=== PATIENT | female | born 1985 | race Asian ===

== ENCOUNTER → 2018-02-23 12:05 | Outpatient (CLI) | payer OTHER, SELFPAY ==
--- NOTE | 2018-02-23 | DI.RAD.S_ITS ---
PROCEDURE: XR HIP W PEL IF DONE RT 2V INDICATIONS: Right hip pain TECHNIQUE: 2 views of the hip were acquired. COMPARISON: None. FINDINGS: Bones: No fractures or dislocations. No suspicious bony lesions. The visualized pelvic ring appears intact. Hip joint space appears grossly preserved. Soft tissues: No suspicious soft tissue calcifications or masses. IMPRESSION: Negative examination as above. Dictated by: Leroy Lopez M.D. on 02/23/2018 at 13:34 Approved by: Leroy Lopez M.D. on 02/23/2018 at 13:35
== END ==
PROVIDERS: PCP Nurse Practitioner Family; Visit Provider Nurse Practitioner Family
DX: M25.551 Pain in right hip (principal)
CPT/HCPCS: 73502

== ENCOUNTER → 2018-07-23 12:06 | Outpatient (CLI) | payer OTHER, SELFPAY ==
--- NOTE | 2018-07-23 | DI.CT.S_ITS ---
PROCEDURE: CT ABDOMEN W CON INDICATIONS: ABDOMINAL PAIN TECHNIQUE: After the administration of oral and intravenous contrast, 5 mm thick sections acquired from the diaphragms to the iliac crests. 5 mm thick coronal and sagittal reformats were acquired. For radiation dose reduction, the following was used: automated exposure control, adjustment of mA and/or kV according to patient size. COMPARISON: None. FINDINGS: Image quality: Excellent. Lung bases: Lung bases are clear. Heart size is normal. Solid organs: Liver is normal in size and enhancement. Gallbladder appears normal. Biliary system is non dilated. Pancreas enhances normally. Spleen is normal in size and enhancement. No adrenal nodules. Kidneys are normal in size, without hydronephrosis. Peritoneum and bowel: Contrast enhanced bowel loops appear normal in caliber. No free fluid or air. Nodes and vessels: No retroperitoneal or mesenteric adenopathy by size criteria. Aorta and inferior vena cava are normal in size. Bones: No suspicious bony lesions. No vertebral body compression fractures. Miscellaneous: No ventral hernias. IMPRESSION: No sign of intestinal obstruction or perforation. No solid or hollow organ lesion is found. Source of current pain syndrome is not identified. Dictated by: Emeka Friedman M.D. on 07/23/2018 at 15:13 Approved by: Emeka Friedman M.D. on 07/23/2018 at 15:14
== END ==
PROVIDERS: PCP Nurse Practitioner Family; Visit Provider Nurse Practitioner Family
DX: R10.9 Unspecified abdominal pain (principal)
CPT/HCPCS: 74160; Q9967

== ENCOUNTER 2022-03-11 16:23 | Outpatient (CLI) | payer OTHER, SELFPAY ==
--- NOTE | 2022-03-11 | DI.US.S_ITS ---
PROCEDURE: US OB BIOPHYSICAL PROFILE INDICATIONS: DECREASED MOVEMENT IVF RAD 04/05/22 TECHNIQUE: Real-time scanning was performed of the fetus for biophysical profile, with image documentation. COMPARISON: None. FINDINGS: General: A single living intrauterine gestation is present. Presentation: Vertex Placenta: Placental position is anterior. Cervical os is not well evaluated. Amniotic fluid index: 20.3 heart rate: 130 beats per minute Maternal cervical canal: Not evaluated Clinically estimated gestational age based on prior dating is 36 weeks and 3 days. Biophysical profile: Tone: 2 points. Movement: 2 points. Respiration: 2 points. Largest pocket of fluid: 2 points. IMPRESSION: Normal biophysical profile: 11/12. We strive to produce accurate, complete, and clear reports of imaging services. To assist us in improving patient care, this report was composed using standard report templates and voice recognition software. Therefore, it may contain abnormal punctuation, insertions and/or omissions. Occasional wrong-word or sound-alike substitutions may occur. Though we review the report and make efforts to correct it, we do recommend that the report be read carefully in proper context to recognize any text inaccuracies. Dictated by: Jakub Pimentel M.D. on 03/11/2022 at 19:05 Approved by: Jakub Pimentel M.D. on 03/11/2022 at 19:07
--- NOTE | 2022-03-11 16:51 | PM.OBTRLD ---
Visit Information Visit Information Date of evaluation: 03/11/22 Primary OB Provider: Rula Butts On-call OB Provider: Rula Butts Reason for Evaluation: Yes non-stress test Comments/Additional reasons for admission: [id number] @ 36 3/7wks here for routine post dates testing for IVF. Vital Signs Vital Signs: VS: BP 121/72mmHg, HR 67bpm, T 36.2C Temporal Review of Systems Review of Systems ROS: Yes All systems reviewed with the patient and are negative except as otherwise documented Exam Presentation: vertex Objective Imaging OB US >14wks LImited (BPP): My impression: BPP 8/8 GABRIELLE 20.3cm Evaluation Evaluation Baseline heart rate: 130 Variability: Moderate (11-25) monitor accelerations: Present Monitor Decelerations: Absent Contraction Frequency (minutes): 0 Category of Tracing: Reactive Comments: CE deferred Diagnosis, Plan/Disposition Final Diagnosis (1) resulting from in vitro fertilization in third trimester: Status: Acute Plan/Disposition Plan: Reassuring testing F/U in 1 week OB Disposition: home
== END 2022-03-11 18:20 | disposition home or self-care (01) ==
LOC: LABOR 16:39 → OB 03-12 10:37
PROVIDERS: PCP Family Medicine; Referring Provider Nurse Practitioner Obstetrics & Gynecology; Visit Provider Nurse Practitioner Obstetrics & Gynecology
DX: O09.813 Supervision of pregnancy resulting from assisted reproductive technology, third trimester (principal); Z3A.36 36 weeks gestation of pregnancy
CPT/HCPCS: 59025; 76819; G0378; G0379

== ENCOUNTER 2022-03-25 10:30 | Inpatient (IN) | payer OTHER, SELFPAY ==
--- NOTE | 2022-03-25 10:39 | PM.OBHP.1 ---
OB HPI Date/Time Date of admission: 03/25/22 Date Patient Seen: 03/25/22 Time Patient Seen: 10:39 History of Present Condition Chief complaint: NST : 1 Para: 0 Estimated Date of Delivery: 04/05/22 Estimated Gestational Age (weeks): 38.5 Narrative: Arline Cruz is a 36 year old female @ 38wks 5/7 weeks by IVF dating. Noticed a gush f clear fluid at 0730 that has continued to leak. Feeling some regular mild cramping. No vaginal bleeding. Uncomplicated care w/ CNM. Desires low intervention . is present and supportive. Comments: VS: BP 115/66mmHg, HR 76bpm, T 36.3C Temporal History of Present care: good care, initiated at week # (4), number of visits (11) and pounds weight gain (39) Dating criteria: other (IVF) Ultrasounds: normal 1st trimester US, normal mid trimester US and other (normal echo) Obstetrical complications: none Medical complications: none Preadmission Labs Blood type: A (+) positive -: Antibody screen: negative, GBS status: positive, HBsAG: negative, HIV: negative and RPR/VDLR: negative -: Chlamydia screen: not detected and Gonorrhea screen: not detected -: Rubella: immune and Varicella: immune HCT: 35.7 HCAB: negative PAP: Normal 1 hr GTT: 109 Evaluation Evaluation Baseline heart rate: 135 Variability: Moderate (11-25) monitor accelerations: Present Monitor Decelerations: Absent Contraction Frequency (minutes): 6 Uterine Contraction Intensity: Mild Status: Category l Non-invasive Membranes Rupture Test: positive Comments: thin meconium stained amnioitc fluid CE deferred [facility] Medical History (Updated 03/25/22 @ 17:40 by Rula Butts CNM) Anemia Hyperthyroidism Infertility Family History (Updated 03/25/22 @ 17:41 by Rula Butts CNM) Father Hypertension Mother Depression Social History (Updated 03/25/22 @ 17:41 by Rula Butts CNM) marital status: household members: spouse lives independently: Yes housing: house education level: college occupational status: employed Smoking Status: Never smoker Meds Home Medications and Allergies Allergies Allergy/AdvReac Type Severity Reaction Status Date / Time No Known Drug Allergies Allergy Verified 03/25/22 10:39 Review of Systems Review of Systems ROS: Yes All systems reviewed with the patient and are negative except as otherwise documented OB Exam Resp Effort & Inspection: normal respiratory effort Auscultation: clear to auscultation bilaterally Cardio Rate: regular rate Rhythm: regular rhythm Heart Sounds: S1 normal and S2 normal Presentation: vertex Objective Labs Result Diagrams: 03/25/22 12:00 Assessment and Plan Assessment and Plan Assessment and Plan narrative: A: Term [place] PROM x 3 hours without sx of infection Meconium stained amniotic fluid GBS prophylaxis indicated Cat I FHR P: Admit, routine orders with ampicillin for GBS prophylaxis. Counseled patient on active vs expectant management of PROM with risks and benefits of infection discussed and she is undecided at this time, will let me know if/when she wants pitocin. NST Q hour until active labor. Encouraged balanced rest and activity. Expectant management at this time. Reassess in 6 hours or sooner.
[2022-03-25 12:23] LABS: Add Manual Diff / Slide Review NO; Basophils Absolute Auto 0 /uL (0-100); Basophils Percent Auto 0.5 % (0-2); Eosinophils Absolute Auto 0 /uL (0-450); Eosinophils Percent Auto 0.4 % (2-4); Hematocrit 33.6 % (36-46); Hemoglobin 11.1 g/dL (12.0-16.0); Lymphocytes Absolute Auto 1100 /uL (1100-4500); Lymphocytes Percent Auto 11.4 % (25-40); Mean Corpuscular HGB Conc 32.9 % (30-36); Mean Corpuscular Hemoglobin 29.2 PG (26-34); Mean Corpuscular Volume 88.8 fL (80-100); Monocytes Absolute Auto 700 /uL (0-900); Monocytes Percent Auto 6.7 % (3-14); Neutrophils Absolute Auto 8100 /uL (1500-7000); Platelet Count 160 X10^3/uL (150-400); Red Blood Cell Count 3.78 X10^6/uL (4.0-5.2); Red Cell Distribution Width 13.6 % (11.6-14.8)
[2022-03-25] MEDS: AMPICILLIN 2,000 MG in SODIUM CHLORIDE 0.9% 100 ML 200 MG IV (12:33)
[2022-03-25 12:37] LABS: COVID19 -Nasal RAPID Negative (Negative)
[2022-03-25 15:16] VITALS: BP 115/66
[2022-03-25] MEDS: AMPICILLIN 1,000 MG in SODIUM CHLORIDE 0.9% 100 ML 200 MG IV ×2 (16:00→20:05)
--- NOTE | 2022-03-25 17:42 | PM.OBPNLAB ---
Date/Time Date Patient Seen: 03/25/22 Time Patient Seen: 17:42 Pain Control Pain control: tolerating well Comments: Has been moving, resting and eating. Now feeling stronger contractions, but still irregular and inconsistent strength-oliver. 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 Continues to leak meconium stained fluid, no with occasional black specs. Pelvic Exam Comments: CE deferred Contractions Monitor mode: External Pitocin rate (mU/min): 0 Contraction frequency (min): 5 Contraction duration (min): 2 Contraction pattern: Irregular Contraction intensity: Mild (occasionally moderate) Status status: Category l Heart Rate Baseline: 135 Monitor Accelerations: Present Monitor Decelerations: Absent Assessment and Plan Assessment: other (PROM- expectant management) Plan: continuous present management Comments: After discussion of labor and expectations around pitocin, patient desires labor augmentation if not breathing through contractions at 7:30pm (12 hours of ROM). Encouraged movement balanced with relaxation. Continue GBS prophylaxis. CE after 2 hours of strong contractions. Reassess in 4-6 hours or sooner, PRN.
[2022-03-25] MEDS: OXYTOCIN PREMIX 30 UNIT/500 ML PLAST..BAG 300 UNIT IV (23:15)
--- NOTE | 2022-03-25 23:43 | PM.OBPRVD ---
Events: Premature Rupture Membrane and Meconium Stained Fluid Labor & Delivery Delivery date: 03/25/22 Intrapartal Events: None Cervical ripening method: none Induction method: none Delivery monitor: external FHT and external uterine Route of delivery: Episiotomy description: None L&D Laceration Description: Perineal - 2nd Degree Delivery repair: chromic (3.0) Quantitative Blood Loss: 200 Anesthesia Type: Local (for repair) Narrative: Strong contractions began at 1845 without augmentation. Labor progressed rapidly to spontaneous urge to push with presumption of complete at 2155. Patient pushed well with encouragement and minimal coaching. RT was called to standby at [facility] for meconium stained amniotic fluid. NSVB of a vigorous baby boy in INGRID position at 2309. There was no nuchal cord and the shoulders delivered without additional maneuvers. Rogers was placed on maternal abdomen for drying and skin to skin. After cessation of pulsation, the cord was double clamped by CNM and cut by FOB. 30 units of pitocin in 500mL LR was started at 300mL/hr for AMTSL. Gentle cord traction and a single maternal push with fundal massage led to spontaneous, Mina delivery of an apparently intact placenta, membranes and 3VC. Fundus immediately firm and bleeding minimal. Inspection revealed a short second degree perineal laceration. Repair was completed under 1% lidocaine local with 3.0 chromic in the usual fashion. QBL 200mL. Both mother and baby stable and skin t skin as I left the room. Rogers Baby 1: Infant gender: Male Presentation: vertex Position: Right Occiput Anterior Placenta delivery description: Spontaneous Cord Vessel Description: 3 Vessels score (1 min): 9 score (5 min): 9 weight: 3.41 kg Plan for aftercare: Routine care
[2022-03-25] MEDS: LIDOCAINE 1% 20 ML (23:59)
[2022-03-26] MEDS: ACETAMINOPHEN 325 MG TABLET 650 MG PO ×3 (00:45→12:09)
[2022-03-26] MEDS: KETOROLAC 30 MG/ML VIAL IV (00:45)
[2022-03-26] MEDS: DERMOPLAST SPRAY 20% 60 ML 1 SPRAY TOP (00:46)
[2022-03-26] MEDS: IBUPROFEN 600 MG TABLET PO ×2 (06:33→12:09)
[2022-03-26] MEDS: PRENATAL VIT,CALC/IRON/FOLIC 1 TABLET 1 TAB PO (09:31)
[2022-03-26] MEDS: DOCUSATE 100 MG CAPSULE PO (09:31)
--- NOTE | 2022-03-26 17:14 | P.DS_ITS ---
Discharge Providers Provider Date of admission: 03/25/22 10:30 Discharge Date: 03/26/22 Primary care physician: Fela Van MD Consults: 03/26/22 23:42 Consult to Power Sweeper Operator Routine Comment: Discharge provider: Rula Butts CNM Summary Hospital Course Date Patient Seen: 03/26/22 Time Patient Seen: 17:14 Diagnoses: O70.1 Hospital Course: PPD1: Stable s/p NSVB with short 2nd degree perineal laceration. Voiding, ambulating and independently. Tolerating a general diet. Pain well controlled with PO medication. Vaginal bleeding is light without clots. Feels ready for discharge to home this evening. Peripartum Data Infant Delivery Method: Natural Vaginal Laceration Description: Perineal - 2nd Degree Episiotomy description: None complications: none Mayer 1: Gender: Male Disposition of : home Discharge Diagnosis (1) Second degree perineal laceration during delivery: Status: Acute Status at Discharge Cognitive/behavioral status at discharge: oriented Functional status at discharge: independent ambulation Overall status at discharge: patient is progressing back to baseline Time Spent with Patient Time attestation: Total time spent providing and/or coordinating discharge services: Objective Labs Result Diagrams: 03/25/22 12:00 Exam Vital Signs (past 8 hours): BP 104/67mmHg, HR 61bpm, RR 18/min, T 98.3F Temporal Other: Fundus firm @ U-1, lochia scant to moderate, minimal perineal edema Discharge Plan Discharge Plan Patient Disposition: Home Discharge orders & Medications Prescriptions: New ibuprofen 600 mg Tablet 600 mg PO Q6HR PRN (Reason: Pain, Mild (1-3)) 14 Days Qty: 60 0RF Continued prenat.vits,rogerio,kbe-tunj-ijrcl tablet 1 tab PO DAILY Follow up/Referrals: Fela Van MD [Primary Care Provider] - Rula Butts CNM [Advanced Site Technician] - (Follow-up phone call 04/08/22 @ 4:30pm Follow-up in office 05/06/22 @ 9:45am) Diet/Activity/Treatments Diet: Diet as Tolerated and Regular Activity: pelvic rest x 6 weeks Skin/Wound/Dressing Care Report to your healthcare provider any signs of infection, such as:: chills, fever, increased pain, unusual drainage and unusual redness Visit Report/Discharge Packet Instructions: DI for Depression Discharge Data Primary Care Provider: Fela Van
[2022-03-26 17:43] VITALS: BP 106/70; PULSE 70; RESP 19; TEMP 36.9
== END 2022-03-26 18:30 | disposition home or self-care (01) | DRG 807 ==
PROVIDERS: Admitting Provider Nurse Practitioner Obstetrics & Gynecology; PCP Family Medicine; Referring Provider Nurse Practitioner Obstetrics & Gynecology; Visit Provider Nurse Practitioner Obstetrics & Gynecology
DX: O42.02 Full-term premature rupture of membranes, onset of labor within 24 hours of rupture (principal); Z37.0 Single live birth; O70.1 Second degree perineal laceration during delivery; Z3A.38 38 weeks gestation of pregnancy; Z20.822 Contact with and (suspected) exposure to COVID-19; O99.824 Streptococcus B carrier state complicating childbirth
CPT/HCPCS: 36415; 59050; 85025; 86850; 86900; 86901; 87635; C9803; G0379; J0290; J1885; J2590

== ENCOUNTER 2023-10-27 10:57 | Day surgery (SDC) | payer OTHER, SELFPAY ==
[2023-10-27] VITALS (8 sets, daily range): BP systolic 106–122; BP diastolic 58–71; PULSE 57–86; RESP 13–19; TEMP 36.2–36.9; O2SAT 98–100; BMI 19.0
--- NOTE | 2023-10-27 | PATH_ITS ---
[facility] Accession Number: [id number] No. of containers..03 Tissue . 01 Material submitted: . PART A: endometrium - ENDOMETRIAL CURETTINGS PART B: ectocervix - ECTOCERVICAL, SUTURE AT 12 O'CLOCK PART C: endocervix - ENDOCERVICAL TOP HAT . 01 Diagnosis: A. ENDOMETRIUM, CURETTINGS: Secretory endometrium. Benign endocervical mucosa. No endometrioid intraepithelial neoplasia, endocervical glandular dysplasia or malignancy. . B. ECTOCERVIX, LEEP: High-grade squamous intraepithelial lesion (DELILAH-2/moderate dysplasia). High-grade squamous intraepithelial lesion focally involves the endocervical resection margin. Ectocervical resection is negative for high-grade squamous intraepithelial lesion. No evidence of malignancy. . C. ENDOCERVIX, TOP HAT: Benign endocervical mucosa. No dysplasia or malignancy. [facility] 10/29/2023 1358 Local . 01 Electronically signed: . Bella Cummings MD, Pathologist NPI- [id number] . 01 Gross description: . A. Received in formalin, labeled with two patient identifiers and designated endometrial curettings, and consists of a 1.0 x 1.0 x 0.3 cm aggregate of blood-tinged mucosa and zamora soft tissue, which is filtered and entirely submitted in cassette A1. B. Received in formalin, labeled with two patient identifiers and designated ectocervix 12 o'clock suture, and consists of an intact oriented cervical LEEP measuring 2.2 x 1.8 x 0.7 cm. The suture is placed at 12 o'clock, the ectocervix is diffusely hemorrhagic and focally eroded, and there is a 0.6 cm patent cervical os. The endocervical margin is inked blue. The ectocervix cautery margin is inked black. The specimen is radially submitted and entirely submitted in cassettes: B1: 12-3 o'clock. B2: 3-6 o'clock. B3: 6 to 9 o'clock. B4: 9 to 12 o'clock. C. Received in formalin, labeled with two patient identifiers and designated endocervical top hat, and consists of a 1.5 x 1.0 x 0.3 cm intact cervical tissue with a central 0.3 cm slit-like os. The endocervical margin is inked blue. The remaining cautery margins are inked black. The specimen is radially sectioned and entirely submitted into cassettes C1-C3. ([id number]) /MRV 10/28/2023 [facility]6 Local . 01 Pathologist provided ICD-10: N87.1 . 01 CPT . 459198, 555311, 267937 Specimen Comment: A courtesy copy of this report has been sent to [facility] Pathology Performed at: [address] [address], [place], [place] [id number] MD Liam Martin MD Phone: [phone]
--- NOTE | 2023-10-27 08:24 | SUR.OPER ---
Lithotomy on padded OR bed, head on pillow, arms secured on padded arm boards at <90 degrees abduction. Legs secured in padded yellow fins stirrups.
--- NOTE | 2023-10-27 11:36 | PM.PREOP ---
Pre-operative Note Interval Note History & Physical reviewed/Exam performed by Physician: Yes Changes to H&P: No H&P completed within 30 days and has changed as indicated here:: 10/03/23 ASA Class (for procedural sedation): I
[2023-10-27] MEDS: ACETAMINOPHEN 325 MG TABLET 975 MG PO (11:38)
[2023-10-27] MEDS: LACTATED RINGERS 1,000 ML 42 ML IV (11:38)
[2023-10-27] MEDS: BUPIVACAINE 0.25% W/ EPI (PF) 10 ML VIAL 20 ML INJ (12:26)
--- NOTE | 2023-10-27 12:40 | PM.OP.1 ---
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 Pt had her legs placed in Jong stirrups and an exam under anesthesia was performed. The patient was prepped and draped in a sterile fashion.? A time out was performed. ?The bladder was emptied via straight catheter in sterile fashion.? A sterile speculum was inserted into the vagina.? The cervix was visualized and grasped anteriorly using a single tooth tenaculum.? The uterus sounded to 8 cm and the cervical os was serially dilated using Ramirez dilators up to 17f to allow for passage of the hysteroscope.? The myosure 0 degree hysteroscope was then inserted into the uterus with findings as noted.? The hysteroscope was removed and the uterus was gently curetted and endometrial sampling was passed off the field for permanent study.? The tenaculum was removed. Attention was then turned to LEEP portion of procedure. An insulated speculum was placed into the vagina and the cervix was once again visualized. The ectocervical stroma was superficially infiltrated with 10cc of 0.25% marcaine with epinephrine for local analgesia and hemostasis; a paracervical block with an additional 10cc of same was performed in standard fashion. Acetic acid applied generously with noted diffuse acetowhite change of SCJ. LEEP performed in two passes with removal first of distal ectocervix (suture at 12 o'clock) followed by endocervical top hat. Rollerball cautery of wound bed performed with noted hemostasis. Monsel's solution applied. Hemostasis again confirmed and speculum was removed. The patient then had her legs taken out of stirrups, all counts correct x2.? The patient tolerated the procedure well and without difficulty.? The patient was awakened from anesthesia and taken to PACU in stable condition. Complications: none Post-operative Condition: stable Disposition: PACU Plan for aftercare: home, routine postop f/u in office
[2023-10-27] MEDS: FERRIC SUBSULFATE 8 ML SOLUTION TOP (12:47)
== END 2023-10-27 13:50 | disposition home or self-care (01) ==
PROVIDERS: PCP Family Medicine; Referring Provider Obstetrics & Gynecology; Visit Provider Obstetrics & Gynecology
PROC: 0UDB8ZZ Extraction of Endometrium, Via Natural or Artificial Opening Endoscopic (ICD-10-PCS; CPT 58558; principal; 2023-10-27 12:00)
DX: N87.1 Moderate cervical dysplasia (principal); N84.1 Polyp of cervix uteri
CPT/HCPCS: 58558; 57522; 81025; A9270; J1100; J2250; J2405; J2704; J3010

== ENCOUNTER → 2024-02-13 14:08 | Outpatient (CLI) | payer OTHER, SELFPAY ==
--- NOTE | 2024-02-13 14:08 | DI.US.S_ITS ---
PROCEDURE: US OB <= 14 WEEKS FETUS INDICATIONS: PAIN. OUTSIDE/PRIOR DATING DATA: IVF: 11/30/2023. LMP-based estimated date of delivery (RAD): 09/05/2024. First dating scan (date and location): 02/13/2024. Estimated date of delivery (RAD) from first dating scan: 09/02/2024. The calculations are made using the IVF RAD of 09/05/2024. TECHNIQUE: Real-time scanning was performed of the fetus and maternal pelvic organs, with image documentation. Endovaginal scanning was also performed to better visualize the fetus and maternal ovaries. COMPARISON: None. FINDINGS: Embryo: 4.3 cm, 11 weeks 1 day Heart rate: 173 Maternal organs: Ovaries are within normal limits. Other: There is a perigestational bleed which measures 2.2 x 0.5 x 1.1 cm or with associated nonfusion of the amnion. There is echogenic debris in the perigestational hemorrhage. IMPRESSION: 1. Living 1st trimester intrauterine measuring 11 weeks 1 day. 2. Perigestational hemorrhage with debris and nonfusion of the amnion. Comment: Recommend short-term imaging follow-up in 2-4 weeks. We strive to produce accurate, complete, and clear reports of imaging services. To assist us in improving patient care, this report was composed using standard report templates and voice recognition software. Therefore, it may contain abnormal punctuation, insertions and/or omissions. Occasional wrong-word or sound-alike substitutions may occur. Though we review the report and make efforts to correct it, we do recommend that the report be read carefully in proper context to recognize any text inaccuracies. Dictated by: Gianni Styles M.D. on 02/13/2024 at 15:26 Approved by: Gianni Styles M.D. on 02/13/2024 at 15:34
== END ==
PROVIDERS: PCP Family Medicine; Referring Provider Advanced Practice Midwife; Visit Provider Advanced Practice Midwife
DX: O09.811 Supervision of pregnancy resulting from assisted reproductive technology, first trimester (principal); O46.8X1 Other antepartum hemorrhage, first trimester; O41.8X10 Other specified disorders of amniotic fluid and membranes, first trimester, not applicable or unspecified; O99.891 Other specified diseases and conditions complicating pregnancy; R10.2 Pelvic and perineal pain; Z3A.11 11 weeks gestation of pregnancy
CPT/HCPCS: 76801; 76817; 93975

== ENCOUNTER 2024-08-28 02:00 | Inpatient (IN) | payer OTHER, SELFPAY ==
--- NOTE | 2024-08-28 02:12 | PM.OBHP.1 ---
OB HPI Date/Time Date of admission: 08/28/24 Date Patient Seen: 08/28/24 Time Patient Seen: 02:12 History of Present Condition Chief complaint: Water Broke : 2 Para: 1 Estimated Date of Delivery: 08/05/24 Estimated Gestational Age (weeks): 38w6d Narrative: Arline Cruz is a 39 year old female at 38w2d by IVF dating here for evaluation of ROM. Arline called after noticing leaking of clear fluid at 0115. She began feeling contractions shortly before leaking fluid. Contractions have gotten a little stronger, but still very manageable. +FM. No vaginal bleeding. Declined CE until her arrives. Uncomplicated care with CNMs with reassuring testing since 36wks for IVF . Planning low intervention . is still at home with their son, awaiting childcare, but will be here soon. History of Present care: good care, initiated at week # (9), number of visits (12) and pounds weight gain (36 lbs) Dating criteria: other (12/18 FET of 5 day embryo ) Ultrasounds: normal 1st trimester US, normal mid trimester US and other (08/23/24 GABREILLE 8.21cm) Obstetrical complications: none Preadmission Labs Blood type: A (+) positive -: Antibody screen: negative, GBS status: negative, HBsAG: negative, HIV: negative and RPR/VDLR: negative -: Rubella: immune and Varicella: immune HCT: 34.1 HCAB: negative PAP: Normal 1 hr GTT: 82 Prior (ies) History: Hx # Term Pregnancies: 1 Hx # Pregnancies: 0 Number of Living Children: 1 Multiple births: 0 Spontaneous abortions: 0 Ectopic pregnancies: 0 Elective abortions: 0 Evaluation Evaluation Baseline heart rate: 125 Variability: Moderate (11-25) monitor accelerations: Present Monitor Decelerations: Absent Contraction Frequency (minutes): 4 Uterine Contraction Intensity: Moderate Status: Category l PFSH Medical History (Updated 08/28/24 @ 03:14 by Rula Butts CNM) Hx LEEP (loop electrosurgical excision procedure), cervix, Endometrial polyp DELILAH III (cervical intraepithelial neoplasia grade III) with severe dysplasia Second degree perineal laceration during delivery resulting from in vitro fertilization in third trimester Hyperthyroidism affecting Encounter for supervision of normal first , first trimester Infertility Hyperthyroidism Anemia Family History (Updated 08/28/24 @ 03:16 by Rula Butts CNM) Father Hypertension Mother Depression Grandmother Cancer Uncle Glaucoma Other Congestive heart failure Social History (Updated 03/25/22 @ 17:41 by Rula Butts CNM) marital status: household members: spouse lives independently: Yes housing: house education level: college occupational status: employed Meds Home Medications and Allergies Home Medications Medication Instructions Recorded Confirmed Type prenat.vits,rogerio,tog-mief-jlfzt 1 tab PO DAILY 03/25/22 08/28/24 History Allergies Allergy/AdvReac Type Severity Reaction Status Date / Time No Known Drug Allergies Allergy Verified 11/14/23 10:11 Review of Systems Review of Systems Narrative: all negative except for issues stated above OB Exam Vital signs Blood Pressure: 113/68 Pulse Rate: 67 Respiratory Rate: 17 Temperature: 98.3 F Presentation: vertex Amniotic Fluid: clear Objective Labs 08/28/24 02:50 Assessment and Plan Assessment and Plan Assessment and Plan narrative: Assessment: Term primipara Early labor ROM x 2 hours without sx of infection No indication for antibiotics Cat I tracing Plan: Admit, routine labor orders Expectant management of labor Labor support, PRN Encourage balanced rest and upright movement CE after 1 hour of strong contractions, sooner if requested Time-Based Coding :: [TOTAL MINUTES] spent with patient and on the chart (including review of chart, obtaining history, exam, reviewing outside data, placing orders, documenting exam and treatment plan, and counseling patient) on [DATE].
[2024-08-28 02:38] VITALS: BP 113/68
[2024-08-28 03:14] LABS: Add Manual Diff / Slide Review NO; Basophils Absolute Auto 0 /uL (0-100); Basophils Percent Auto 0.4 % (0-2); Eosinophils Absolute Auto 100 /uL (0-450); Eosinophils Percent Auto 0.7 % (2-4); Hematocrit 34.1 % (36-46); Hemoglobin 11.7 g/dL (12.0-16.0); Lymphocytes Absolute Auto 1600 /uL (1100-4500); Mean Corpuscular HGB Conc 34.3 % (30-36); Mean Corpuscular Hemoglobin 30.4 PG (26-34); Mean Corpuscular Volume 88.7 fL (80-100); Monocytes Absolute Auto 500 /uL (0-900); Monocytes Percent Auto 5.9 % (3-14); Neutrophils Absolute Auto 5600 /uL (1500-7000); Platelet Count 203 X10^3/uL (150-400); Red Blood Cell Count 3.85 X10^6/uL (4.0-5.2); Red Cell Distribution Width 13.8 % (11.6-14.8); White Blood Cell Count 7.8 X10^3/uL (4.5-11.0)
[2024-08-28 03:43] VITALS: BP 113/68; PULSE 67
[2024-08-28 03:54] VITALS: RESP 17; TEMP 36.8
--- NOTE | 2024-08-28 08:06 | PM.OBPNLAB ---
Date/Time Date Patient Seen: 08/28/24 Time Patient Seen: 08:01 Pain Control Pain control: tolerating well Comments: Progressing well without augmentation or anesthesia. She reports that baby feels lower. Beginning to push spontaneously with occasional strong contraction. CNM and SNM providing continuous labor support. VS: BP 100/54, HR 60bpm, RR 18, T 36.9C Oral Pelvic Exam Comments: Declined cervical exam. CE was 3/80/-1 shortly after admission. Increase in bloody show. Contractions Contractions on admission: regular Monitor mode: None Contraction frequency (min): 2 Contraction duration (min): 1 Contraction pattern: Regular Contraction phase: Contraction Contraction intensity: Strong/Firm Status Heart Rate Baseline: 120 Comments: Reassuring by intermittent auscultation Assessment and Plan Assessment: active labor Plan: continuous present management Comments: Assessment: Term primipara Active labor SROMx 7 hours without sx of infection Reassuring FHR Plan: Continue intermittent auscultation Expectant management of second stage of labor Emotional support and coaching during pushing Anticipate NSVB soon
--- NOTE | 2024-08-28 09:29 | P.PCNOB_ITS ---
Labor & Delivery Delivery date: 08/28/24 Delivery Time: 08:53 Intrapartal Events: None Cervical ripening method: none Induction method: none Delivery monitor: external FHT Route of delivery: Episiotomy description: None L&D Laceration Description: Perineal - 1st Degree Quantitative Blood Loss: 75 Narrative: Arline was preseumed to be complete when she had a strong urge to push. After 30 minutes of pushing, a cervical exam confirmed C/C/+2. With frequent position changes, Arline pushed effectively during 2nd stage. Reassuring FHR assessed via intermittent auscultation. NSVB of a vigorous baby girl in MAY[place] position at 0853. There was no nuchal cord and the shoulders delivered easily. Baby was placed on Arline's abdomen for drying and skin to skin. Apgars 9/9. After cessation of pulsation, the cord was double clamped by SNM and cut by FOB. 30 units of pitocin in 500mL LR was started, per protocol, for active management of the third stage. Gentle cord traction and a single maternal push led to spontaneous, Schultze delivery of an apparently intact placenta, membranes and 3 VC. Fundus immediately firm and bleeding scant. One medium clot was massaged out for a total QBL of 75mL. Small hemostatic 1st degree laceration noted at the introitus. Edges were well-approximated and no repair indicated. Both mother and baby stable and skin to skin as I left the room. [place] Baby 1: Infant gender: Female Presentation: vertex Position: Left Occiput Anterior Placenta delivery description: Spontaneous and Normal Configuration score (1 min): 9 score (5 min): 9 weight: 3.103 kg Plan for aftercare: Routine care (Anticipate d/c to home in 24 hours)
[2024-08-28] MEDS: ACETAMINOPHEN 325 MG TABLET 650 MG PO (10:04)
[2024-08-28] MEDS: KETOROLAC 30 MG/ML VIAL IV (10:05)
--- NOTE | 2024-08-28 11:26 | PM.OBDS.1 ---
Discharge Providers Provider Date of admission: 08/28/24 02:00 Discharge Date: 08/28/24 Primary care physician: Bhupinder Julien MD Consults: 08/29/24 09:12 Consult to Senior Asp Net Developer Routine Comment: Discharge provider: Rula Butts CNM Summary Hospital Course Date Patient Seen: 08/28/24 Time Patient Seen: 11:27 Diagnoses: O70.0 Hospital Course: Spontaneous labor progressed rapidly without augmentation or anesthesia to NSVB of a healthy baby girl. Arline is 3 hours s/p NSVB and eager for [facility]. Voiding, ambulating and independently. Tolerating a general diet. Cramping pain is well controlled with a single dose of ketoralac and plan for PO ibuprofen and Tylenol. Vaginal bleeding is light, without clots. is present and supportive and they both agree to bring their in tomorrow morning for 24 hour checks. Peripartum Data Infant Delivery Method: Natural Vaginal Laceration Description: Perineal - 1st Degree Episiotomy description: None Procedures: O70.0 complications: none [place] 1: Gender: Female Disposition of : home Discharge Diagnosis (1) First degree perineal laceration during delivery: Status: Acute Status at Discharge Cognitive/behavioral status at discharge: oriented Functional status at discharge: independent ambulation Overall status at discharge: patient is progressing back to baseline Time Spent with Patient Time attestation: Total time spent providing and/or coordinating discharge services: Objective Labs 08/28/24 02:50 Labs: Laboratory Results - last 24 hr 08/28/24 02:50 WBC 7.8 RBC 3.85 L Hgb 11.7 L Hct 34.1 L MCV 88.7 MCH 30.4 MCHC 34.3 RDW 13.8 Plt Count 203 Neut % (Auto) 72.0 Lymph % (Auto) 21.0 L [place] % (Auto) 5.9 Eos % (Auto) 0.7 L Baso % (Auto) 0.4 Neut # (Auto) 5600 Lymph # (Auto) 1600 [place] # (Auto) 500 Eos # (Auto) 100 Baso # (Auto) 0 Blood Type A Positive Antibody Screen Negative Exam Vital Signs (past 8 hours): - 08/28/24 10:30 Temperature 36.0C Pulse Rate 60 Respiratory Rate 17 Blood Pressure 99/55 Const General: cooperative, healthy appearing and comfortable Other: Fundus firm @ U, lochia small to moderate without clots. Perineum well approximated with minimal edema. Psych Appearance: grossly normal Mood: congruent mood Affect: normal affect Discharge Plan Discharge Plan Patient Disposition: Home Provider Discharge Comment: Discharge at 4-6 hours PP, per patient request Discharge orders & Medications Prescriptions: New ibuprofen 600 mg Tablet 600 mg PO Q6HR PRN (Reason: Pain, Mild (1-3)) 14 Days Qty: 60 0RF Continued prenat.vits,rogerio,dek-emnw-ovgeu tablet 1 tab PO DAILY Follow up/Referrals: Bhupinder Julien MD [Primary Care Provider] - Rula Butts CNM [Advanced Bench Worker Apprentice] - (Follow up in 2 weeks and 6 weeks with [facility]. Appointments are in your email. ) Diet/Activity/Treatments Diet: Diet as Tolerated and Regular Activity: bed rest x 2 weeks, no heavy lifting x 4 weeks, pelvic rest x 6 weeks Skin/Wound/Dressing Care Report to your healthcare provider any signs of infection, such as:: chills, fever, increased pain, unusual drainage and unusual redness Visit Report/Discharge Packet Instructions: DI for Depression Stand Alone Forms: Patient Portal/API, Stroke Signs & Symptoms Discharge Data Primary Care Provider: Bhupinder Julien Attending Provider: Rula Butts Admit Date/Time: 08/28/24 02:00
== END 2024-08-28 14:25 | disposition home or self-care (01) | DRG 807 ==
PROVIDERS: Admitting Provider Nurse Practitioner Obstetrics & Gynecology; PCP Family Medicine; Referring Provider Family Medicine; Visit Provider Nurse Practitioner Obstetrics & Gynecology
DX: O70.0 First degree perineal laceration during delivery (principal); Z37.0 Single live birth; Z67.10 Type A blood, Rh positive; Z3A.38 38 weeks gestation of pregnancy
CPT/HCPCS: 36415; 59050; 85025; 86850; 86900; 86901; G0378; G0379; J1885